=== PATIENT | male | born 1960 | race Caucasian/White ===

== ENCOUNTER 2017-11-20 19:13 | Emergency (ER) | payer OTHER ==
[~2017-11-20] VITALS: Ht 185.4 cm; Wt 87.1 kg
[~2017-11-20 19:13] MED LIST: LIPITOR
[2017-11-20 19:21] VITALS: TEMP 36.4; Ht 185.4 cm; Wt 87.1 kg
[2017-11-20] MEDS ORDERED: XYLOCAINE 1%/SOD BICARB 20 ML VIAL INFIL ONE (19:45)
[2017-11-20 20:31] VITALS: BP 138/75; PULSE 76; O2SAT 98
--- NOTE | 2017-11-20 20:33 | EMERGENCY ROOM VISIT NOTE ---
History First contact with patient: 19:23 Chief Complaint: LACERATION/CUT (SUT/DERMABOND) Stated Complaint: LACERATION TO RT HAND, PASSED OUT- Nursing Triage Summary: Patient ambulatory to triage with an upright and steady gait, states "I was walking out of the office and going across the parking lot. I saw some ice. I slipped on the ice and fell. I didn't hit my head at all. I fell onto my right hand and a piece of ice cut my hand open along the palm of my thumb." History of Present Illness The patient is a 57 year old male who presents to the Emergency Room with complaints of a laceration to his right hand. The patient reports that he was walking out of his work office across a parking lot when he slipped on ice and fell. Other than the laceration to the hand. He denies any other significant hand, wrist, elbow or shoulder pain. He denies any head injury, neck pain or back pain. The patient denies any paresthesias or numbness of the right thumb, and rates his discomfort a 2 out of 10. The patient is [id number], and tetanus immunization is up-to-date. Review of Systems 10 system review was performed and was negative except for pertinent positives and negatives as indicated in history of present illness Past Medical/Surgical History Medical Problems: (1) Tobacco Use Disorder Surgical Problems: (1) Bilat Inguinal Hernia (2) History of hand surgery Family History No significant family history Social History Smoking Status: Current Every Day Smoker Alcohol Use: occasionally Marital Status: Housing Status: lives with family Occupation Status: employed Current/Historical Medications Miscellaneous Medications [Lipitor] Physical Exam Vital Signs Date Time Temp Pulse Resp B/P (MAP) Pulse Ox O2 Delivery O2 Flow Rate FiO2 18 19:21 36.4 69 18 132/78 99 Room Air Physical Exam CONSTITUTIONAL: Healthy and well nourished. Alert and oriented X 3 with positive affect. Patient does not appear in any acute distress. HEENT: Normocephalic, atraumatic. Pupils equal, round and reactive. NECK: Full active range of motion without discomfort. MUSCULOSKELETAL: Examination of the right hand shows a 3.5 cm laceration across the thenar eminence and web space between the thumb and index finger. No active bleeding or significant soft tissue edema noted. The patient is able to flex and extend the thumb against resistance. Capillary refill is less than 2 seconds. Negative anatomic snuffbox tenderness or tenderness to palpation about the wrist. INTEGUMENTARY: No rash or other significant dermatologic conditions noted. NEUROLOGIC: Right thumb is sensory intact. Medical Decision & Procedures Procedure Laceration repair was performed under local anesthesia after receiving verbal consent from the patient. Using buffered 1% lidocaine without epinephrine, good local anesthesia was administered. The wound was then peripherally cleansed with iodine, then pressure irrigated with 100 mL of normal saline. Additional debris was further debrided using forceps and gauze. The wound was reirrigated with an additional 50 mL of normal saline, with good hemostasis. No vital blood vessels, nerves, tendons or joint spaces were seen. The wound was then approximated using 4-0 nylon simple interrupted sutures 8. A bacitracin dressing was applied. ED Course Patient history and physical exam were performed. Nurse's notes were reviewed. Vital signs were reviewed and were normal. Laceration repair was performed under local anesthesia. The patient was provided additional verbal and written wound care instructions. Ice and elevation for swelling. Ibuprofen or Tylenol in alternating fashion as needed for additional pain relief. Suture removal in 12-14 days, or seek reevaluation sooner for any signs of wound infection. The patient was happy with plan of care, voiced understanding of all discharge instructions, and denied any pain at the time of discharge. Medical Decision Medication Reconcilliation Current Medication List: was personally reviewed by tx Blood Pressure Screening Patient's blood pressure: Normal blood pressure Impression Primary Impression: Laceration of right hand Departure Information Dispostion Home / Self-Care Forms HOME CARE DOCUMENTATION FORM, IMPORTANT VISIT INFORMATION Patient Instructions [facility] Additional Instructions Keep wound clean and dry. Do not allow any crusting or dried blood to accumulate on sutures. If this occurs, use a 1:1 solution of hydrogen peroxide/ water on a Q-tip to clean the wound. Use an antibiotic ointment for 3-4 days, then let wound dry. Suture removal in 12-14 days. Return sooner for any signs of infection (increasing redness, swelling, drainage). Ice and elevate for swelling and pain. Ibuprofen 600 mg and Tylenol 1000 mg every 6 hrs as needed for pain. Problem Qualifiers Primary Impression: Laceration of right hand Encounter type: initial encounter Foreign body presence: without foreign body Qualified Codes: S61.411A - Laceration without foreign body of right hand , initial encounter
== END 2017-11-20 20:33 | disposition home or self-care (01) ==
LOC: C.EDB 19:14 → C.EDD 20:33
DX: S61.411A Laceration without foreign body of right hand, initial encounter (principal); W00.0XXA Fall on same level due to ice and snow, initial encounter; Y93.01 Activity, walking, marching and hiking; Y92.481 Parking lot as the place of occurrence of the external cause; F17.200 Nicotine dependence, unspecified, uncomplicated

== ENCOUNTER → 2017-12-06 | Outpatient (CLI) | payer OTHER ==
--- NOTE | 2017-12-14 14:03 | CODING QUERY NO DIAGNOSIS ---
TREATMENT RENDERED WITHOUT A DIAGNOSIS Dr. Beck, To promote full compliance with coding requirements relating to patient care, physician participation is requested in all cases of automobile accessories salesperson uncertainty. Please assist us with providing a diagnosis/symptom for the test(s) below: A diagnosis/symptom was not documented on your Order. A valid diagnosis/symptom is required to bill all insurances. Please remember that we are unable to code a diagnosis of rule out, probable, possible, questionable, or suspected. Tests that require a diagnosis: * CULTURE, BACTERIAL, ANY SOURCE DIAGNOSIS: * CULTURE, BACT., DEF; ANY SOURC DIAGNOSIS: DATE OF SERVICE: 12/06/17 Provider Signature: Date: Thank you Yan Resendez [facility] Information Management Once completed, please kindly fax back to [phone] For questions please call [phone]
== END | disposition home or self-care (01) ==
LOC: C.LABSPEC 17:43
PROVIDERS: ATTEND Orthopaedic Surgery
DX: S61.001A Unspecified open wound of right thumb without damage to nail, initial encounter (principal); X58.XXXA Exposure to other specified factors, initial encounter